=== PATIENT | male | born 1970 | race Caucasian/White ===

== ENCOUNTER 2021-07-05 20:19 | Emergency (ER) | payer MEDICAID, SELFPAY ==
[2021-07-05 21:02] VITALS: BP 163/78; PULSE 100; RESP 18; TEMP 36.4; O2SAT 97; BMI 27.3
[2021-07-07 18:17] LABS: Quest SARS-CoV-2 RNA NOT DETECTED (NOT DETECTED)
--- NOTE | 2021-07-08 08:55 | PC.NURSE ---
Pt notified of Negative COVID test
== END 2021-07-05 23:56 | disposition left against medical advice (07) ==
LOC: ER 20:34
DX: Z53.21 Procedure and treatment not carried out due to patient leaving prior to being seen by health care provider (principal)
CPT/HCPCS: 87635; 99281

== ENCOUNTER → 2022-06-24 17:32 | Outpatient (BNVA) | payer MEDICAID, SELFPAY | PROVIDERS: Visit Provider Family Medicine | DX: M25.50 Pain in unspecified joint (principal); R73.09 Other abnormal glucose; Z13.6 Encounter for screening for cardiovascular disorders; G56.03 Carpal tunnel syndrome, bilateral upper limbs | CPT/HCPCS: 80053; 80061; 82306; 82607; 83036; 84550; 85025; 85651; 86038; 86140; 86200; 86431 ==

== ENCOUNTER → 2022-11-19 17:12 | Outpatient (BNVA) | payer MEDICAID, SELFPAY | PROVIDERS: Visit Provider Nurse Practitioner Family | DX: J32.9 Chronic sinusitis, unspecified (principal); E78.2 Mixed hyperlipidemia; R20.2 Paresthesia of skin; J45.909 Unspecified asthma, uncomplicated; G62.9 Polyneuropathy, unspecified; F17.200 Nicotine dependence, unspecified, uncomplicated | CPT/HCPCS: 80053; 80061 ==

== ENCOUNTER 2024-10-07 15:43 | Emergency (ER) | payer BC, SELFPAY ==
[2024-10-07 16:09] VITALS: BP 125/85; PULSE 95; RESP 18; TEMP 36.3; O2SAT 97; BMI 24.9
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
[2024-10-07] MEDS: methocarbamol 750 mg Tablet PO (20:34)
[2024-10-07 20:38] VITALS: BP 142/97; PULSE 97; RESP 16; O2SAT 98
== END 2024-10-07 20:39 | disposition home or self-care (01) ==
PROVIDERS: Emergency Provider Physician Assistant
DX: S39.012A Strain of muscle, fascia and tendon of lower back, initial encounter (principal); F07.81 Postconcussional syndrome; S16.1XXA Strain of muscle, fascia and tendon at neck level, initial encounter; S09.8XXA Other specified injuries of head, initial encounter; V89.2XXA Person injured in unspecified motor-vehicle accident, traffic, initial encounter
CPT/HCPCS: 70450; 71250; 72125; 72128; 72131; 99284